=== PATIENT | female | born 2000 | race Caucasian/White ===

== ENCOUNTER → 2023-07-13 14:16 | Outpatient (CLI) | payer OTHER, SELFPAY ==
--- NOTE | 2023-07-13 14:19 | DI.US.S_ITS ---
PROCEDURE: US OB >= 14 WEEKS FETUS INDICATIONS: ANATOMY OUTSIDE/PRIOR DATING DATA: Last menstrual period (LMP): 02/22/2023 LMP-based estimated date of delivery (LEODAN): 11/29/2023 First dating scan (date and location): Not available Estimated date of delivery (LEODAN) from first dating scan: Not applicable The calculations are made using the working LEODAN of 11/21/2023. TECHNIQUE: Real-time scanning was performed of the fetus, with image documentation and biometric measurements. Endovaginal scanning: Not indicated COMPARISON: None. FINDINGS: General: A single living intrauterine gestation is present. Presentation: Vertex Placenta: Placental position is anterior, without previa. Amniotic fluid index: 14.9 cm, normal range is 5-24 cm. Single deepest vertical pocket is 5.6 cm. heart rate: 149 beats per minute. Maternal cervical canal: 4.7 cm long. Normal lower limit is 2.5 cm. biometrics: Biparietal diameter: 4.9 cm, 20 weeks, 6 days Head circumference: 18.6 cm, 20 weeks, 6 days Abdominal circumference: 16.8 cm, 21 weeks, 6 days Femur length: 3.7 cm, 21 weeks, 5 days Clinically estimated gestational age: 20 weeks, 1 day Composite gestational age from present scan: 21 weeks, 2 days Estimated weight and percentile: 440 g, 99% Anatomic survey: Neuro: Ventricles are non-dilated at less than 10 mm. Cisterna magna is normal at 3-11 mm. Cerebellum is normal in size and morphology. Nuchal skin fold: Normal at less than 6 mm between 14-21 weeks gestational age. Face: Nose and lips, facial profile are normal. Spine: No evidence for spina bifida. Heart: 4-chambered heart is present, with normal ventricular outflow tracts. Diaphragm: Diaphragm is intact. Stomach: Left-sided stomach is present. Kidneys: No hydronephrosis. Normal is less than 5 mm in 2nd trimester, less than 7 mm in 3rd trimester. Cord: 3-vessel cord has orthotopic insertion. Bladder: Normal in size. Extremities: All 4 extremities identified. IMPRESSION: 1. Single live intrauterine gestation with fetus in vertex presentation. heart rate is 149 beats per minute. Normal amount of amniotic fluid. Normal growth. Estimated weight is at 99%. 2. Normal anatomic survey. We strive to produce accurate, complete, and clear reports of imaging services. To assist us in improving patient care, this report was composed using standard report templates and voice recognition software. Therefore, it may contain abnormal punctuation, insertions and/or omissions. Occasional wrong-word or sound-alike substitutions may occur. Though we review the report and make efforts to correct it, we do recommend that the report be read carefully in proper context to recognize any text inaccuracies. Dictated by: Alfredo Jorgensen M.D. on 07/13/2023 at 16:43 Approved by: Alfredo Jorgensen M.D. on 07/13/2023 at 16:45
== END ==
LOC: US 14:19
PROVIDERS: Referring Provider Family Medicine; Visit Provider Family Medicine
DX: Z36.2 Encounter for other antenatal screening follow-up (principal); Z3A.21 21 weeks gestation of pregnancy
CPT/HCPCS: 76811